=== PATIENT | female | born 1945 | race Caucasian/White ===

== ENCOUNTER → 2019-01-16 | Outpatient (CLI) | payer MEDICARE, OTHER ==
[~2019-01-16] MED LIST: ACET325T14 PO; DABI150C PO; LEVO25TA4 PO; LIOT5TAB3 PO; MAGN400T7 PO; OMEG1CAP23 PO; SOTA80TA18 PO; potassium PO
== END | disposition home or self-care (01) ==
LOC: CFH 12:56
PROVIDERS: ATTEND Internal Medicine Cardiovascular Disease
DX: M51.84 Other intervertebral disc disorders, thoracic region (principal); I48.91 Unspecified atrial fibrillation
CPT/HCPCS: 71046; 75572

== ENCOUNTER 2019-01-17 07:15 | Inpatient (IN) | payer MEDICARE, OTHER ==
[2019-01-16 14:34] VITALS: BP 172/85
[~2019-01-17] VITALS: Ht 163.8 cm; Wt 73.0 kg
[~2019-01-17 07:15] MED LIST changes: -ACET325T14 PO; +OMNIPAQUE 350 MG/ML, 150 ML BOTTLE ONE; -SOTA80TA18 PO
[2019-01-17] MEDS ORDERED: SODIUM CHLORIDE 0.9% 1,000 ML IV SCH ×2 (07:38→08:00)
[2019-01-17] MEDS ORDERED: LIDOCAINE 1%, 20ML ONE (08:56)
[2019-01-17] MEDS ORDERED: ISOPROTERENOL 0.2MG/ML, 5ML ONE (08:56)
[2019-01-17] MEDS ORDERED: PROTAMINE SULFATE 10 MG/ML, 5ML ONE ×2 (08:56→12:55)
[2019-01-17] MEDS ORDERED: FENTANYL PF 250 MCG/5ML ONE (09:10)
[2019-01-17] MEDS ORDERED: MIDAZOLAM 1 MG/ML, 2ML ONE (09:10)
[2019-01-17] MEDS ORDERED: PROPOFOL 50 ML ONE (09:10)
[2019-01-17] MEDS ORDERED: FENTANYL PF 100 MCG/2ML IV PRN (09:30)
[2019-01-17] MEDS ORDERED: DIAZEPAM 5 MG/ML, 2ML IVPush PRN (09:30)
[2019-01-17] MEDS ORDERED: PROMETHAZINE 25 MG SUPP PR PRN (09:30)
[2019-01-17] MEDS ORDERED: ONDANSETRON 2MG/ML, 2ML IV PRN (09:30)
[2019-01-17] MEDS ORDERED: LABETALOL 5MG/ML, 20ML IV PRN (09:30)
[2019-01-17] MEDS ORDERED: EPHEDRINE 50 MG/ML, 1ML IM PRN (09:30)
[2019-01-17] MEDS ORDERED: MORPHINE SULFATE 4 MG/ML, 1ML IVPush PRN (09:30)
[2019-01-17] MEDS ORDERED: OXYcodone 5 MG/5 ML ORAL.SOL UDC PO PRN ×2 (09:30→23:00)
[2019-01-17] MEDS ORDERED: PROMETHAZINE 25 MG/ML, 1ML IV PRN (09:30)
[2019-01-17] MEDS ORDERED: EPHEDRINE 50 MG/ML, 1ML IVPush PRN (09:30)
[2019-01-17] MEDS ORDERED: PROMETHAZINE 12.5 MG SUPP PR PRN (09:30)
[2019-01-17] MEDS ORDERED: MIDAZOLAM 1 MG/ML, 2ML IV PRN (09:30)
[2019-01-17] MEDS ORDERED: ONDANSETRON ODT 8 MG PO PRN (09:30)
[2019-01-17] MEDS ORDERED: ACETAMINOPHEN 325 MG TABLET PO PRN ×2 (09:30→23:00)
[2019-01-17] MEDS ORDERED: DIPHENHYDRAMINE 50 MG/ML, 1ML IVPush PRN (09:30)
[2019-01-17] MEDS ORDERED: DEXAMETHASONE 4 MG/ML, 1ML ONE (14:54)
[2019-01-17] MEDS ORDERED: ONDANSETRON 2MG/ML, 2ML ONE (14:54)
[2019-01-17] MEDS ORDERED: SUCCINYLCHOLINE 20 MG/ML, 10ML ONE (14:54)
[2019-01-17] MEDS ORDERED: ROCURONIUM 10MG/ML,5ML ONE (14:54)
[2019-01-17] MEDS: DABIGATRAN 150 MG CAPSULE PO SCH ×2 (15:00→21:59)
[2019-01-17] MEDS ORDERED: ZOLPIDEM 5MG TABLET PO PRN (17:30)
[2019-01-17] MEDS: SOTALOL 80MG TABLET PO SCH (18:48)
[2019-01-17 20:14] VITALS: BP 116/77
[2019-01-18 03:20] VITALS: BP 130/75
[2019-01-18] MEDS: SOTALOL 80MG TABLET PO SCH ×2 (06:00→18:32)
[2019-01-18] MEDS ORDERED: SOTALOL 80MG TABLET PO ONE (06:30)
[2019-01-18 07:18] VITALS: BP 108/63
[2019-01-18] MEDS: LEVOTHYROXINE 25 MCG TABLET PO SCH (08:49)
[2019-01-18] MEDS: LIOTHYRONINE 5 MCG TABLET PO SCH (08:49)
[2019-01-18] MEDS: DABIGATRAN 150 MG CAPSULE PO SCH ×2 (08:50→20:47)
[2019-01-18] MEDS: OMEGA-3/FISH OIL CAPSULE PO SCH (08:53)
[2019-01-18] MEDS ORDERED: MAGNESIUM OXIDE 400 MG TABLET PO SCH (09:00)
[2019-01-18] MEDS: POTASSIUM CHLORIDE 8 MEQ TABLET.ER PO SCH (12:43)
[2019-01-18] MEDS: MAGNESIUM OXIDE 400 MG TABLET PO SCH (12:43)
[2019-01-18 13:47] VITALS: BP 110/70
[2019-01-18 15:40] LABS: ALANINE AMINOTRANSFERASE 57 U/L (12-78); ALBUMIN 3.3 g/dL (3.4-5.0); ANION GAP 5 mmol/L (5-15); CHLORIDE 106 mmol/L (98-107); CREATININE 0.89 mg/dL (0.55-1.02)
[2019-01-18 15:43] LABS: ALKALINE PHOSPHATASE 80 U/L (45-117); BILIRUBIN,TOTAL 0.5 mg/dL (0.2-1.0); TOTAL PROTEIN 6.1 g/dL (6.4-8.2)
[2019-01-18 21:32] VITALS: BP 133/76
[2019-01-19 03:32] VITALS: BP 136/82
[2019-01-19] MEDS: SOTALOL 80MG TABLET PO SCH (05:49)
[2019-01-19] MEDS: LEVOTHYROXINE 25 MCG TABLET PO SCH ×2 (05:49→05:52)
[2019-01-19 06:23] LABS: BASOPHILS # (AUTO) 0.05 x10^3/uL (0-0.1); BASOPHILS % (AUTO) 1 % (0-1); EOSINOPHILS # (AUTO) 0.16 x10^3/uL (0-0.4); EOSINOPHILS % (AUTO) 2 % (1-7); LYMPHOCYTES # (AUTO) 2.33 x10^3/uL (1-3.4); LYMPHOCYTES % (AUTO) 28 % (22-44); MD NO; MEAN CORPUSCULAR HEMOGLOBIN 30.7 pg (27.0-34.8); MEAN CORPUSCULAR HGB CONC 34.2 g/dL (32.4-35.8); MEAN CORPUSCULAR VOLUME 89.7 fL (80-100); MEAN PLATELET VOLUME 7.4 fL (7.4-10.4); MONOCYTES % (AUTO) 7 % (2-9); NEUTROPHILS # (AUTO) 5.27 x10^3/uL (1.8-6.8); NEUTROPHILS % (AUTO) 63 % (42-75); PLATELET COUNT 183 x10^3/uL (130-400); RED CELL DISTRIBUTION WIDTH 14.1 % (9.6-15.2)
[2019-01-19 06:33] LABS: ALBUMIN 3.3 g/dL (3.4-5.0); ANION GAP 7 mmol/L (5-15); CHLORIDE 110 mmol/L (98-107); CREATININE 0.69 mg/dL (0.55-1.02)
[2019-01-19] MEDS ORDERED: SOTA80TA18 PO (07:38)
[2019-01-19] MEDS ORDERED: ACET325T14 PO (07:38)
[2019-01-19] MEDS: POTASSIUM CHLORIDE 8 MEQ TABLET.ER PO SCH (08:00)
[2019-01-19] MEDS: LIOTHYRONINE 5 MCG TABLET PO SCH (08:28)
[2019-01-19] MEDS: OMEGA-3/FISH OIL CAPSULE PO SCH (08:28)
[2019-01-19] MEDS: MAGNESIUM OXIDE 400 MG TABLET PO SCH (08:28)
[2019-01-19] MEDS: DABIGATRAN 150 MG CAPSULE PO SCH (08:29)
[2019-01-19 10:10] VITALS: BP 144/79
== END 2019-01-19 11:51 | disposition home or self-care (01) | DRG 273 ==
LOC: CACL 07:15 → ORIP 13:24 → OBSVTOIN 13:24 → 5SO 15:41
PROVIDERS: ADMIT Internal Medicine Cardiovascular Disease; ATTEND Internal Medicine Cardiovascular Disease
PROC: 4A023FZ Measurement of Cardiac Rhythm, Percutaneous Approach (ICD-10-PCS; 2019-01-17)
PROC: 4A0234Z Measurement of Cardiac Electrical Activity, Percutaneous Approach (ICD-10-PCS; 2019-01-17)
PROC: 02K83ZZ Map Conduction Mechanism, Percutaneous Approach (ICD-10-PCS; 2019-01-17)
PROC: 02583ZZ Destruction of Conduction Mechanism, Percutaneous Approach (ICD-10-PCS; principal; 2019-01-17 09:00)
DX: I48.92 Unspecified atrial flutter (principal); I50.31 Acute diastolic (congestive) heart failure; D68.69 Other thrombophilia; I48.91 Unspecified atrial fibrillation; E05.90 Thyrotoxicosis, unspecified without thyrotoxic crisis or storm; F41.9 Anxiety disorder, unspecified; I35.1 Nonrheumatic aortic (valve) insufficiency; G43.909 Migraine, unspecified, not intractable, without status migrainosus; R53.82 Chronic fatigue, unspecified; Z88.2 Allergy status to sulfonamides; Z88.8 Allergy status to other drugs, medicaments and biological substances; Z91.018 Allergy to other foods; Z87.891 Personal history of nicotine dependence
CPT/HCPCS: 36415; 71046; 75572; 80048; 80053; 82040; 85025; 85347; 93005; 93306; 93312; 93321; 93325; 93613; 93655; 93656; 93662; C1731; C1732; C1766; C1893; C1894; G0378; J1100; J2250; J2405; J2704; J2720; J3010; Q9967; C1730; J0330